=== PATIENT | male | born 1970 | race Caucasian/White ===

== ENCOUNTER 2021-10-06 15:28 | Emergency (ER) | payer OTHER ==
[~2021-10-06] VITALS: Ht 165.1 cm; Wt 45.8 kg
[2021-10-06] MEDS ORDERED: HYDROCODONE-AC1 EAC1 PO (19:20)
[2021-10-06] MEDS ORDERED: IBUPROFEN600 MG PO (19:20)
== END 2021-10-06 19:08 | disposition home or self-care (01) ==
LOC: ED 15:28
DX: S22.41XA Multiple fractures of ribs, right side, initial encounter for closed fracture (principal); K59.00 Constipation, unspecified; W00.0XXA Fall on same level due to ice and snow, initial encounter; Y93.89 Activity, other specified; Y92.89 Other specified places as the place of occurrence of the external cause; Y99.8 Other external cause status